=== PATIENT | female | born 1995 | race Caucasian/White ===

== ENCOUNTER 2018-07-13 18:50 | Emergency (ER) | payer OTHER ==
[2018-07-13] MEDS ORDERED: CYCLOBENZAPRINE 10 MG TABLET PO STA (21:17)
[2018-07-13] MEDS ORDERED: IBUPROFEN 800 MG TABLET PO STA (21:17)
--- NOTE | 2018-07-13 21:20 | ED Physician Documentation ---
History of Present Illness - Stated complaint Stated Complaint: NECK PX/L ARM NUMB - Chief complaint Chief Complaint: Ext Problem - History obtained from History obtained from: Patient - History of Present Illness Timing: Today (Healthy 22-year-old woman awoke this morning with left-sided neck pain and difficulty rotating her neck. She feels like the left arm is swollen, she has never had this before. No possibility of . No shortness of breath or fever. No headache.) Review of Systems Constitutional: reports: Reviewed and negative Throat: reports: Reviewed and negative Cardiac: reports: Reviewed and negative PD PAST MEDICAL HISTORY - Past Medical History Past Medical History: No Cardiovascular: None Respiratory: None Neuro: None Endocrine/Autoimmune: None GI: None [employer]: None : None HEENT: None Psych: None Musculoskeletal: None Derm: None - Past Surgical History Past Surgical History: No - Present Medications Home Medications: Ambulatory Orders Medication Instructions Recorded Confirmed Cyclobenzaprine [Flexeril] 10 mg PO TID PRN #20 tablet 07/13/18 Ibuprofen [Motrin] 800 mg PO Q8H PRN #30 tablet 07/13/18 - Allergies Allergies/Adverse Reactions: Allergies Allergy/AdvReac Type Severity Reaction Status Date / Time No Known Drug Allergies Allergy Verified 07/13/18 19:19 - Social History Does the pt smoke?: No Smoking Status: Never smoker Does the pt drink ETOH?: No Does the pt have substance abuse?: No - Immunizations Immunizations are current?: Yes - POLST Patient has POLST: No PD ED PE NORMAL - Vitals Vital signs reviewed: Yes - General General: Alert and oriented X 3, No acute distress - HEENT HEENT: PERRL, EOMI - Neck Neck: Supple, no meningeal sign, Other (No midline neck tenderness but she is tender over the left sternocleidomastoid and she has difficulty with rotation of her neck to either direction but especially the left. She notes swelling in the left arm but they are symmetric. She has mildly diminished sensation throughout but that does not fit a dermatomal pattern. Normal radial pulses. Equal shell sieve operator strength, thumb extension, interossei strength bilaterally.) - Cardiac Cardiac: RRR, No murmur - Respiratory Respiratory: No respiratory distress, Clear bilaterally - Abdomen Abdomen: Non tender - Neuro Neuro: Alert and oriented X 3, Normal speech - Psych Psych: Normal mood, Normal affect Results - Vitals Vitals: Vital Signs - 24 hr 07/13/18 19:14 Temperature 36.9 C Heart Rate 100 Respiratory 16 Rate Blood Pressure 132/100 H O2 Saturation 100 Oxygen O2 Source Room air PD MEDICAL DECISION MAKING - Sepsis Event Vital Signs: Vital Signs - 24 hr 07/13/18 19:14 Temperature 36.9 C Heart Rate 100 Respiratory 16 Rate Blood Pressure 132/100 H O2 Saturation 100 Oxygen O2 Source Room air Departure - Departure Disposition: 01 Home, Self Care Clinical Impression: Torticollis Condition: Good Record reviewed to determine appropriate education?: Yes Instructions: Torticollis Prescriptions: Cyclobenzaprine [Flexeril] 10 mg PO TID PRN #20 tablet PRN Reason: Spasms Ibuprofen [Motrin] 800 mg PO Q8H PRN #30 tablet PRN Reason: PAIN &/OR FEVER Comments: Call your doctor to arrange a follow-up appointment, make the next available appointment. In the interim, return anytime if worse or if new symptoms develop. Your blood pressure was elevated today on check into the emergency department. This does not mean that you have hypertension, it is a common phenomenon to come to the emergency department and have elevated blood pressure. I recommend that you see your primary care physician within the week to have it rechecked when you are feeling better.
[2018-07-13 21:30] VITALS: BP 118/89
== END 2018-07-13 21:32 | disposition home or self-care (01) ==
LOC: ED 18:50
DX: M43.6 Torticollis (principal); R03.0 Elevated blood-pressure reading, without diagnosis of hypertension
CPT/HCPCS: 99283; A9270